=== PATIENT | male | born 1995 | race Caucasian/White ===

== ENCOUNTER 2018-10-31 18:17 | Emergency (ER) | payer OTHER ==
--- NOTE | 2018-10-31 19:26 | ER Document Report ---
ED Medical Screen (RME) - General Chief Complaint: Numbness Stated Complaint: LEFT ARM AND NECK PAIN Time Seen by Provider: 10/31/18 18:34 TRAVEL OUTSIDE OF THE [place] IN LAST 30 DAYS: No - HPI Patient complains to provider of: Left-sided chest pain, left arm pain, left neck pain Notes: 10/31/18 19:25 Patient is a 23-year-old male presenting to the emergency room complaining of 3 -4-day history of left-sided pain that started out as numbness and tingling following an anxiety attack 4 days ago but symptoms have persisted and now progressed to pain, it is in his left anterior neck, his left upper extremity and his left chest, patient denies smoking cigarettes, he does admit to smoking marijuana 10/31/18 19:26 RAPID MEDICAL EVALUATION DISCLOSURE I have seen this patient as part of a Rapid Medical Evaluation and, if applicable, placed any initially appropriate orders. The patient will be seen and fully evaluated, including a full history and physical exam, by a provider (in Main ED or Fast Track) when a room becomes available. - Related Data Allergies/Adverse Reactions: No Known Allergies Allergy (Unverified 10/31/18 18:21) Past Medical History - Social History Chew tobacco use (# tins/day): No Frequency of alcohol use: Occasional Drug Abuse: Marijuana Renal/ Medical History: Denies: Hx Peritoneal Dialysis Physical Exam - Vital signs Vitals: Temp Pulse Resp BP Pulse Ox 99.3 F 99 20 172/74 H 100 10/31/18 18:19 10/31/18 18:19 10/31/18 18:19 10/31/18 18:19 10/31/18 18:19 Course - Vital Signs Vital signs: Temp Pulse Resp BP Pulse Ox 99.3 F 99 20 172/74 H 100 10/31/18 18:19 10/31/18 18:19 10/31/18 18:19 10/31/18 18:19 10/31/18 18:19
--- NOTE | 2018-10-31 19:48 | RADIOLOGY REPORT (SQ) ---
EXAM DESCRIPTION: CHEST 2 VIEWS COMPLETED DATE/TIME: 10/31/2018 7:36 pm REASON FOR STUDY: cp COMPARISON: None. EXAM PARAMETERS: NUMBER OF VIEWS: two views TECHNIQUE: Digital Frontal and Lateral radiographic views of the chest acquired. RADIATION DOSE: NA LIMITATIONS: none FINDINGS: LUNGS AND PLEURA: No opacities, masses or pneumothorax. No pleural effusion. MEDIASTINUM AND HILAR STRUCTURES: No masses or contour abnormalities. HEART AND VASCULAR STRUCTURES: Heart normal size. No evidence for failure. BONES: No acute findings. HARDWARE: None in the chest. OTHER: No other significant finding. IMPRESSION: NO ACUTE RADIOGRAPHIC FINDING IN THE CHEST. TECHNICAL DOCUMENTATION: JOB ID: [id number]- All Rights Reserved Reading location - IP/workstation name: [email or web address]
--- NOTE | 2018-10-31 20:08 | ER Document Report ---
ED General - General Chief Complaint: Numbness Stated Complaint: LEFT ARM AND NECK PAIN Time Seen by Provider: 10/31/18 18:34 Notes: Patient is a 23-year-old male that comes to the emergency department for chief complaint of symptoms of pain and numbness starting from his left mid to back neck and extending down his left shoulder and his left arm towards the hand. Symptoms are intermittent. He states at first it felt like a tingling sensation but now he is feeling more pain. Symptoms started almost 4 days ago, he states symptoms started after he had a panic attack. He denies injury, fever, difficulty breathing, pain in his chest, dizziness, vomiting. Patient states he has a panic attack every few months, he smokes marijuana, he denies tobacco, alcohol, denies any other recreational drugs or ever partaking in IVDA. TRAVEL OUTSIDE OF THE [place] IN LAST 30 DAYS: No - Related Data Allergies/Adverse Reactions: No Known Allergies Allergy (Unverified 10/31/18 18:21) Past Medical History - General Information source: Patient - Social History Smoking Status: Never Smoker Chew tobacco use (# tins/day): No Frequency of alcohol use: Occasional Drug Abuse: Marijuana Lives with: Family Family History: Reviewed & Not Pertinent Patient has suicidal ideation: No Patient has homicidal ideation: No - Medical History Medical History: Negative Renal/ Medical History: Denies: Hx Peritoneal Dialysis Surgical Hx: Negative - Immunizations Immunizations up to date: Yes Hx Diphtheria, Pertussis, Tetanus Vaccination: Yes Review of Systems - Review of Systems Constitutional: No symptoms reported EENT: No symptoms reported Cardiovascular: See HPI Respiratory: No symptoms reported Gastrointestinal: No symptoms reported Genitourinary: No symptoms reported Male Genitourinary: No symptoms reported Musculoskeletal: See HPI Skin: No symptoms reported Hematologic/Lymphatic: No symptoms reported Neurological/Psychological: See HPI Physical Exam - Vital signs Vitals: Temp Pulse Resp BP Pulse Ox 99.3 F 99 20 172/74 H 100 10/31/18 18:19 10/31/18 18:19 10/31/18 18:19 10/31/18 18:19 10/31/18 18:19 - Notes Notes: GENERAL: Alert, interacts well. No acute distress. HEAD: Normocephalic, atraumatic. EYES: Pupils equal, round, and reactive to light. Extraocular movements intact. ENT: Oral mucosa moist, tongue midline. Oropharynx unremarkable. Airway patent. Nares patent, no nasal septal hematoma, TM's intact. NECK: Full range of motion. Supple. Trachea midline. LUNGS: Clear to auscultation bilaterally, no wheezes, rales, or rhonchi. No respiratory distress. HEART: Regular rate and rhythm. No murmur ABDOMEN: Soft, non-tender. Non-distended. Bowel sounds present in all 4 quadrants. GENITOURINARY: Deferred EXTREMITIES: Moves all 4 extremities spontaneously. No edema, normal radial and dorsalis pedis pulses bilaterally. No cyanosis. BACK: no cervical, thoracic, lumbar midline tenderness. Tenderness over the left paracervical musculature extending into the left trapezius, reproducible with movement. No erythema or signs of trauma. Normal range of motion of the neck. No saddle anesthesia, normal distal neurovascular exam. NEUROLOGICAL: Alert and oriented x3. Normal speech. [cranial nerves II through XII grossly intact]. PSYCH: Patient becomes very anxious, talks rapidly, however he is easy to calm down with reassurance SKIN: Warm, dry, normal turgor. No rashes or lesions noted. Course - Re-evaluation Re-evalutation: I did review workup from triage. X-rays unremarkable, CBC unremarkable, chemistry unremarkable, troponin is negative. EKG was performed, shows a sinus rhythm, no T wave inversions or ST segment changes in consecutive leads, no acute findings. Patient initially hypertensive, he is notably anxious on exam, he was given reassurance. Patient has very musculoskeletal symptoms and he has specific muscular tenderness over the left paracervical muscles and extending into the shoulder. Symptoms are intermittent. I discussed the workup in detail, discussed recommendations for patient in detail, discussed medications, follow-up, return precautions in detail. Patient states understanding and agreement with plan. Stable at time of discharge. - Vital Signs Vital signs: Temp Pulse Resp BP Pulse Ox 98.5 F 82 20 158/72 H 100 10/31/18 21:37 10/31/18 21:37 10/31/18 21:37 10/31/18 21:37 10/31/18 21:37 - Laboratory Result Diagrams: 10/31/18 20:13 10/31/18 20:13 Laboratory results interpreted by me: 10/31/18 20:13 RBC 5.87 H Discharge - Discharge Clinical Impression: Neck pain, Left arm pain, Paresthesias Left shoulder pain Qualifiers: Chronicity: acute Qualified Code(s): M25.512 - Pain in left shoulder Condition: Stable Disposition: HOME, SELF-CARE Additional Instructions: Your EKG, chest x-ray, and laboratory workup do not show any concerning abnormalities. Your physical examination is consistent with paracervical and trapezius muscle injury and spasm, this appears to be the cause of your symptoms. Apply heat to the area, do gentle stretches, take prescribed anti-inflammatory and muscle relaxer, symptoms should gradually resolve with time. Follow-up with primary care. Return for any concerning symptoms including severe worsening pain, fever, pain in your chest, difficulty breathing, passing out, or any other concerning or worsening symptoms. Prescriptions: Methocarbamol [Robaxin 750 mg Tablet] 750 mg PO Q6 #20 tablet Naproxen 500 mg PO BID PRN #20 tablet PRN Reason: Forms: Return to Work, Elevated Blood Pressure
[2018-10-31 20:31] LABS: ABSOLUTE BASOPHILS # (AUTO) 0.1 10^3/uL (0.0-0.2); ABSOLUTE EOSINOPHILS # (AUTO) 0.1 10^3/uL (0.0-0.6); ABSOLUTE LYMPHOCYTES (AUTO) 2.3 10^3/uL (0.5-4.7); ABSOLUTE MONOCYTES (AUTO) 0.5 10^3/uL (0.1-1.4); ABSOLUTE NEUT (AUTO) 6.2 10^3/uL (1.7-8.2); BASOPHILS % (AUTO) 0.8 % (0-2); HEMATOCRIT 47.4 % (37.9-51.0); HEMOGLOBIN 16.3 g/dL (13.5-17.0); LYMPHOCYTES % (AUTO) 25.4 % (13-45); MEAN CORPUSCULAR HEMOGLOBIN 27.8 pg (27.0-33.4); MEAN CORPUSCULAR HGB CONC 34.4 g/dL (32.0-36.0); MEAN CORPUSCULAR VOLUME 81 fl (80-97); MONOCYTES % (AUTO) 5.4 % (3-13); PLATELET COUNT 277 10^3/uL (150-450); RED BLOOD COUNT 5.87 10^6/uL (4.35-5.55); RED CELL DISTRIBUTION WIDTH 12.8 % (11.5-14.0); SEGMENTED NEUTROPHILS % (AUTO) 67.4 % (42-78); TOTAL CELLS COUNTED % (AUTO) 100 %; WHITE BLOOD COUNT 9.2 10^3/uL (4.0-10.5)
[2018-10-31 20:43] LABS: ALANINE AMINOTRANSFERASE 38 U/L (21-72); ALBUMIN 4.9 g/dL (3.5-5.0); ALKALINE PHOSPHATASE 80 U/L (38-126); ANION GAP 10 (5-19); ASPARTATE AMINO TRANSFERASE 22 U/L (17-59); BILIRUBIN,DIRECT 0.2 mg/dL (0.0-0.4); BILIRUBIN,TOTAL 0.7 mg/dL (0.2-1.3); BLOOD UREA NITROGEN 18 mg/dL (7-20); CALCIUM 9.3 mg/dL (8.4-10.2); CARBON DIOXIDE 27 mmol/L (22-30); CHLORIDE 103 mmol/L (98-107); CREATINE KINASE 93 U/L (55-170); GLUCOSE 89 mg/dL (75-110); POTASSIUM 4.4 mmol/L (3.6-5.0); SODIUM 140.4 mmol/L (137-145); TOTAL PROTEIN 7.4 g/dL (6.3-8.2)
[2018-10-31] MEDS ORDERED: DIAZEPAM 5 MG TABLET PO ONE (21:16)
[2018-10-31 21:44] VITALS: BP 158/72
--- NOTE | 2018-11-01 07:56 | EKG REPORT ---
SEVERITY:- NORMAL ECG - SINUS RHYTHM : Confirmed by: Estevan Doherty MD 01-Nov-2018 07:54:41
== END 2018-10-31 21:37 | disposition home or self-care (01) ==
LOC: ER 18:17
DX: M54.2 Cervicalgia (principal); M25.512 Pain in left shoulder; R20.2 Paresthesia of skin; M54.9 Dorsalgia, unspecified; M79.602 Pain in left arm; M79.642 Pain in left hand
CPT/HCPCS: 36415; 71046; 80053; 82550; 84484; 85025; 93005; 93010; 99284